=== PATIENT | female | born 1955 | race Caucasian/White ===

== ENCOUNTER → 2019-10-17 | Outpatient (CLI) | payer OTHER, MEDICARE | LOC: SJCVC 11:21 | DX: I49.9 Cardiac arrhythmia, unspecified (principal); I10 Essential (primary) hypertension; R93.1 Abnormal findings on diagnostic imaging of heart and coronary circulation; E78.00 Pure hypercholesterolemia, unspecified; E78.5 Hyperlipidemia, unspecified; M85.80 Other specified disorders of bone density and structure, unspecified site; Z82.49 Family history of ischemic heart disease and other diseases of the circulatory system; Z79.899 Other long term (current) drug therapy ==

== ENCOUNTER → 2019-12-17 | Outpatient (CLI) | payer OTHER, MEDICARE | LOC: SJCVCIMAG 10:54 | DX: Z01.810 Encounter for preprocedural cardiovascular examination (principal); R93.1 Abnormal findings on diagnostic imaging of heart and coronary circulation; I10 Essential (primary) hypertension; E78.5 Hyperlipidemia, unspecified ==

== ENCOUNTER → 2020-09-18 | Outpatient (CLI) | payer OTHER, MEDICARE | LOC: SJCVC 10:04 | PROVIDERS: ATTEND Internal Medicine Cardiovascular Disease | DX: R93.1 Abnormal findings on diagnostic imaging of heart and coronary circulation (principal); I10 Essential (primary) hypertension; E78.00 Pure hypercholesterolemia, unspecified; R79.89 Other specified abnormal findings of blood chemistry; E78.5 Hyperlipidemia, unspecified; E03.9 Hypothyroidism, unspecified; M85.88 Other specified disorders of bone density and structure, other site; Z86.16 Personal history of COVID-19; Z79.82 Long term (current) use of aspirin; Z79.899 Other long term (current) drug therapy; Z72.89 Other problems related to lifestyle ==

== ENCOUNTER → 2020-09-19 | Outpatient (CLI) | payer OTHER, MEDICARE | LOC: SJCVCIMAG 07:56 | PROVIDERS: ATTEND Internal Medicine Cardiovascular Disease | DX: I10 Essential (primary) hypertension (principal); N28.1 Cyst of kidney, acquired; R79.89 Other specified abnormal findings of blood chemistry; R93.1 Abnormal findings on diagnostic imaging of heart and coronary circulation; Z79.899 Other long term (current) drug therapy ==

== ENCOUNTER → 2021-06-18 | Outpatient (CLI) | payer OTHER, MEDICARE | LOC: SJCVC 09:59 | PROVIDERS: ATTEND Internal Medicine Cardiovascular Disease | DX: R93.1 Abnormal findings on diagnostic imaging of heart and coronary circulation (principal); I10 Essential (primary) hypertension; E78.00 Pure hypercholesterolemia, unspecified; E78.5 Hyperlipidemia, unspecified; E21.3 Hyperparathyroidism, unspecified; Z86.16 Personal history of COVID-19; Z79.82 Long term (current) use of aspirin; Z79.899 Other long term (current) drug therapy; Z72.89 Other problems related to lifestyle ==